=== PATIENT | male | born 1980 | race Two or more races ===

== ENCOUNTER 2021-05-23 22:40 | Inpatient (IN) | payer BC, OTHER ==
[~2021-05-23] VITALS: Ht 180.3 cm; Wt 92.8 kg
[2021-05-24 01:59] LABS: Basophils # (auto) 0 10 ^3/uL (0-0.2); Basophils % (auto) 0.1 % (0.0-2.0); Eosinophils # (auto) 0 10 ^3/uL (0-0.8); Hematocrit 43.5 % (41.0-53.0); Hemoglobin 15.4 g/dL (13.5-17.5); Lymphocytes # (auto) 0.8 10 ^3/uL (0.4-5.4); Lymphocytes % (auto) 8.7 % (10.0-50.0); Mean Corpuscular Hemoglobin 30.9 pg (28.0-32.0); Mean Corpuscular Hgb Conc. 35.5 g/dL (32.0-36.0); Mean Corpuscular Volume 87.1 fL (80.0-100.0); Monocytes # (auto) 0.5 10 ^3/uL (0-1.3); Monocytes % (auto) 4.9 % (0.0-12.0); Neutrophils # (auto) 8.3 10 ^3/uL (1.6-8.6); Neutrophils % (auto) 86.3 % (37.0-80.0); Nucleated Red Blood Cells % 0.1 %; Red Blood Cells 4.99 10^6/uL (4.5-5.90); Red Cell Distribution Width 13.3 % (11.8-14.3); White Blood Cell 9.7 10^3/uL (4.4-10.8)
[2021-05-24 02:53] LABS: Albumin 3.1 g/dL (3.4-5.0); BUN/Creatinine Ratio 17.3; Calcium 8.9 mg/dL (8.5-10.1); Potassium 3.6 mmol/L (3.5-5.1)
[2021-05-24 02:56] LABS: Bilirubin, Total 0.5 mg/dL (0.2-1.0); Total Protein 8.4 g/dL (6.4-8.2)
[2021-05-24] MEDS ORDERED: NITROGLYCERIN 0.4 MG SL TAB SL PRN (07:00)
[2021-05-24] MEDS ORDERED: MORPHINE SULFATE INJECTION 2 MG/2 ML SYRG IV PRN (07:00)
[2021-05-24] MEDS ORDERED: HYDROcodone-ACET 5/325MG TAB PO PRN (07:00)
[2021-05-24] MEDS ORDERED: ONDANSETRON HCL 4 MG/2 ML VIAL IV PRN (07:00)
[2021-05-24] MEDS ORDERED: ACETAMINOPHEN 500 MG TAB PO PRN (07:00)
[2021-05-24 07:56] LABS: INR 1.06 (0.9-1.15); Partial Thromboplastin Time 27.1 sec (23.6-33.0)
[2021-05-24] MEDS: DexAMETHasone SOD PHOS 10MG/1ML VIAL INJ IV SCH (11:36)
[2021-05-24] MEDS: ASCORBIC ACID 1,000 MG TAB PO SCH (11:37)
[2021-05-24] MEDS: MULTIPLE VITAMIN TAB PO SCH (11:37)
[2021-05-24] MEDS: CHOLECALCIFEROL (VITD3) 2,000 UNIT CAP/TAB PO SCH (11:37)
[2021-05-24] MEDS: DOXYCYCLINE 100MG/250ML 250 ML IV SCH ×2 (11:37→21:52)
[2021-05-24] MEDS: ZINC SULFATE 220mg CAP or TAB PO SCH (11:37)
[2021-05-24] MEDS: ENOXAPARIN SOD 40 MG/0.4 ML SYRINGE SC SCH (11:38)
[2021-05-24] MEDS ORDERED: guaiFENesin-DM 100/10mg/5ml SYR PO PRN (12:00)
[2021-05-24 12:53] VITALS: BP 153/92
[2021-05-24 12:56] VITALS: BP 153/92
[2021-05-24] MEDS ORDERED: REMDESIVIR PER PHARMACY 0 ML IV SCH (13:00)
[2021-05-24] MEDS: SODIUM CHLOR 0.9% PF (SALINE LOCK) 10ML VIAL/SYR IV SCH ×2 (14:01→21:51)
[2021-05-24] MEDS ORDERED: REMDESIVIR 200 MG in NS 210ml LOADING DOSE ADULT IV ONE (15:00)
[2021-05-24 16:40] VITALS: BP 150/95
[2021-05-24] MEDS ORDERED: NORPTMEDS CO (16:59)
[2021-05-24] MEDS: BUDESONIDE (INHALATION) 180 MCG IH IN SCH (22:03)
[2021-05-24] MEDS: ALBUTEROL SULF HFA 90MCG INH 200DOSE IN PRN (22:04)
[2021-05-24 22:19] VITALS: BP 152/94
[2021-05-25] VITALS (7 sets, daily range): BP systolic 140–158; BP diastolic 81–101
[2021-05-25] MEDS: SODIUM CHLOR 0.9% PF (SALINE LOCK) 10ML VIAL/SYR IV SCH ×3 (05:36→21:36)
[2021-05-25] MEDS: ALBUTEROL SULF HFA 90MCG INH 200DOSE IN PRN ×2 (06:53→19:41)
[2021-05-25] MEDS: BUDESONIDE (INHALATION) 180 MCG IH IN SCH ×2 (06:54→19:40)
[2021-05-25 07:57] LABS: Basophils # (auto) 0 10 ^3/uL (0-0.2); Eosinophils # (auto) 0 10 ^3/uL (0-0.8); Hematocrit 43.6 % (41.0-53.0); Hemoglobin 15.3 g/dL (13.5-17.5); Lymphocytes # (auto) 1.4 10 ^3/uL (0.4-5.4); Monocytes # (auto) 1.1 10 ^3/uL (0-1.3)
[2021-05-25 07:59] LABS: Basophils % (auto) 0.1 % (0.0-2.0); Lymphocytes % (auto) 9.6 % (10.0-50.0); Mean Corpuscular Hemoglobin 30.5 pg (28.0-32.0); Mean Corpuscular Hgb Conc. 35.1 g/dL (32.0-36.0); Monocytes % (auto) 7.7 % (0.0-12.0); Neutrophils # (auto) 11.9 10 ^3/uL (1.6-8.6); Neutrophils % (auto) 82.6 % (37.0-80.0); Red Blood Cells 5.01 10^6/uL (4.5-5.90); Red Cell Distribution Width 13.4 % (11.8-14.3); White Blood Cell 14.4 10^3/uL (4.4-10.8)
[2021-05-25 08:19] LABS: Albumin 2.8 g/dL (3.4-5.0); Potassium 3.9 mmol/L (3.5-5.1)
[2021-05-25 08:22] LABS: BUN/Creatinine Ratio 24.4
[2021-05-25 08:24] LABS: Bilirubin, Total 0.4 mg/dL (0.2-1.0); Total Protein 7.5 g/dL (6.4-8.2)
[2021-05-25] MEDS: DexAMETHasone SOD PHOS 10MG/1ML VIAL INJ IV SCH (10:18)
[2021-05-25] MEDS: DOXYCYCLINE 100MG/250ML 250 ML IV SCH ×2 (10:18→21:36)
[2021-05-25] MEDS: ZINC SULFATE 220mg CAP or TAB PO SCH (10:19)
[2021-05-25] MEDS: ASCORBIC ACID 1,000 MG TAB PO SCH (10:31)
[2021-05-25] MEDS: CHOLECALCIFEROL (VITD3) 2,000 UNIT CAP/TAB PO SCH (10:31)
[2021-05-25] MEDS: MULTIPLE VITAMIN TAB PO SCH (10:31)
[2021-05-25] MEDS: ENOXAPARIN SOD 40 MG/0.4 ML SYRINGE SC SCH (10:31)
[2021-05-25] MEDS: REMDESIVIR 100mg 100 MG in SODIUM CHL 0.9% 230 ML IV SCH (15:07)
[2021-05-26] VITALS (7 sets, daily range): BP systolic 109–143; BP diastolic 58–95
[2021-05-26] MEDS: SODIUM CHLOR 0.9% PF (SALINE LOCK) 10ML VIAL/SYR IV SCH ×3 (05:56→22:18)
[2021-05-26] MEDS: ASCORBIC ACID 1,000 MG TAB PO SCH (09:38)
[2021-05-26] MEDS: CHOLECALCIFEROL (VITD3) 2,000 UNIT CAP/TAB PO SCH (09:38)
[2021-05-26] MEDS: ZINC SULFATE 220mg CAP or TAB PO SCH (09:38)
[2021-05-26] MEDS: DexAMETHasone SOD PHOS 10MG/1ML VIAL INJ IV SCH (09:38)
[2021-05-26] MEDS: MULTIPLE VITAMIN TAB PO SCH (09:38)
[2021-05-26] MEDS: DOXYCYCLINE 100MG/250ML 250 ML IV SCH ×2 (09:38→22:18)
[2021-05-26] MEDS: ENOXAPARIN SOD 40 MG/0.4 ML SYRINGE SC SCH (09:39)
[2021-05-26] MEDS: BUDESONIDE (INHALATION) 180 MCG IH IN SCH ×2 (10:00→21:44)
[2021-05-26] MEDS: REMDESIVIR 100mg 100 MG in SODIUM CHL 0.9% 230 ML IV SCH (14:39)
[2021-05-27 05:17] VITALS: BP 125/81
[2021-05-27] MEDS: SODIUM CHLOR 0.9% PF (SALINE LOCK) 10ML VIAL/SYR IV SCH ×2 (06:00→14:00)
[2021-05-27] MEDS: ALBUTEROL SULF HFA 90MCG INH 200DOSE IN PRN (06:12)
[2021-05-27] MEDS: BUDESONIDE (INHALATION) 180 MCG IH IN SCH (06:12)
[2021-05-27 06:36] LABS: Albumin 2.6 g/dL (3.4-5.0); BUN/Creatinine Ratio 22.4; Bilirubin, Total 0.5 mg/dL (0.2-1.0); Calcium 8.5 mg/dL (8.5-10.1); Total Protein 6.9 g/dL (6.4-8.2)
[2021-05-27 08:00] VITALS: BP 118/71
[2021-05-27] MEDS: ZINC SULFATE 220mg CAP or TAB PO SCH (09:06)
[2021-05-27] MEDS: DexAMETHasone SOD PHOS 10MG/1ML VIAL INJ IV SCH (09:06)
[2021-05-27] MEDS: DOXYCYCLINE 100MG/250ML 250 ML IV SCH (09:06)
[2021-05-27] MEDS: ASCORBIC ACID 1,000 MG TAB PO SCH (09:08)
[2021-05-27] MEDS: CHOLECALCIFEROL (VITD3) 2,000 UNIT CAP/TAB PO SCH (09:08)
[2021-05-27] MEDS: MULTIPLE VITAMIN TAB PO SCH (09:08)
[2021-05-27] MEDS: ENOXAPARIN SOD 40 MG/0.4 ML SYRINGE SC SCH (09:09)
[2021-05-27 13:00] VITALS: BP 125/86
[2021-05-27] MEDS ORDERED: ALBUAER3 IN (14:09)
[2021-05-27] MEDS ORDERED: OMEP-434 PO (14:09)
[2021-05-27] MEDS ORDERED: DOXY-286 PO (14:09)
[2021-05-27] MEDS ORDERED: DEX4T PO (14:09)
[2021-05-27] MEDS ORDERED: DEXT1SYP9 PO (14:09)
[2021-05-27 14:28] VITALS: BP 125/86
[2021-05-27] MEDS: REMDESIVIR 100mg 100 MG in SODIUM CHL 0.9% 230 ML IV SCH (15:00)
== END 2021-05-27 17:50 | disposition home or self-care (01) | DRG 177 ==
LOC: ER 22:40 → EDBD 22:40 → TELE 05-24 06:47 → TELE-EAST 05-24 11:04
PROVIDERS: ADMIT Nurse Practitioner Family; ATTEND Hospitalist
PROC: XW033E5 Introduction of Remdesivir Anti-infective into Peripheral Vein, Percutaneous Approach, New Technology Group 5 (ICD-10-PCS; principal; 2021-05-24)
DX: U07.1 COVID-19 (principal); J12.82 Pneumonia due to coronavirus disease 2019; J96.01 Acute respiratory failure with hypoxia; J98.11 Atelectasis; R73.9 Hyperglycemia, unspecified; R79.89 Other specified abnormal findings of blood chemistry
CPT/HCPCS: 36415; 71045; 80053; 83036; 83735; 85025; 85379; 85610; 85730; 87426; 94640; 96374; G0378; J1100; J3490